=== PATIENT | female | born 1965 | race Caucasian/White ===

== ENCOUNTER 2016-11-30 18:00 | Emergency (ER) | payer SELFPAY ==
[2016-11-30 18:17] VITALS: RESP 18; TEMP 97.7
[2016-11-30] MEDS ORDERED: Sodium Chloride 0.9% 1,000 ML PRIMARY IV ONE ×2 (18:37→18:38)
[2016-11-30] MEDS ORDERED: NORMAL SALINE 10 ML SYRINGE FLUSH IVP PRN ×2 (18:37→18:38)
[2016-11-30] MEDS ORDERED: Metoclopramide Inj 10 MG/2 ML VIAL IVP ONE (18:38)
[2016-11-30] MEDS ORDERED: ONDANSETRON 4 MG/2 ML VIAL IVP ONE (18:38)
[2016-11-30] MEDS ORDERED: diphenhydrAMINE 50 MG/1 ML VIAL IVP ONE (18:38)
[2016-11-30] MEDS ORDERED: IPRATROPIUM/ALBUTEROL SULFATE 3 ML NEB NEB ONE (18:40)
[2016-11-30 19:25] LABS: BASOPHILS # (AUTO) 0.06 10*3/UL; BASOPHILS % (AUTO) 0.7 % (0-1); EOSINOPHILS % (AUTO) 2.1 % (0-8); HEMATOCRIT 42.7 % (37.0-47.0); IMM GRAN % (AUTO) 0.4 % (0-5); IMM GRAN# (AUTO) 0.03 10*3/UL; LYMPHOCYTES # (AUTO) 2.26 10*3/uL; LYMPHOCYTES % (AUTO) 28.1 % (10-50); MEAN CORPUSCULAR HEMOGLOBIN 31.9 PG (27-31); MEAN CORPUSCULAR HGB CONC 35.1 g/dL (33-37); MEAN PLATELET VOLUME 9.4 FL (7.4-12.2); MONOCYTES # (AUTO) 0.45 10*3/UL (0.3-0.8); MONOCYTES % (AUTO) 5.6 % (5-15); NEUTROPHILS # (AUTO) 5.06 10*3/UL; NEUTROPHILS % (AUTO) 63.1 % (50-80); RDW COEFFICIENT OF VARIATION 13.7 % (11.5-14.5); WHITE BLOOD COUNT 8.03 10^3/uL (4.8-10.8)
[2016-11-30 19:28] LABS: PLATELET MORPHOLOGY COMMENT NORMAL MORPHOLOGY (NORM)
[2016-11-30 19:37] LABS: ASPARTATE AMINO TRANSFERASE 32 IU/L (8-39); BILIRUBIN,TOTAL 0.5 mg/dL (0.3-1.2); BLOOD UREA NITROGEN 7 mg/dL (7-22); CALCIUM 9.3 mg/dL (8.7-10.7); CHLORIDE 105 meq/L (98-112); CREATININE 0.7 mg/dL (0.50-1.20); EST GLOMERULAR FILTRATION > 60 (>60 ml/min/1.73m(2)); GLUCOSE 82 mg/dL (78-110); POTASSIUM 3.9 meq/L (3.8-5.2); SODIUM 139 meq/L (135-145); TOTAL PROTEIN 6.9 g/dL (6.1-8.0)
[2016-11-30] MEDS ORDERED: KETOROLAC 30 MG/1 ML VIAL IVP ONE (19:39)
[2016-11-30] MEDS ORDERED: HYDROmorphone 2 MG/1 ML IVP ONE (19:55)
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
--- NOTE | 2016-12-01 15:09 | DI ---
PA /LATERAL CHEST X-RAY, 11/30/2016 6:37 PM : Clinical History: Cough. Previous Exam: 03/16/2013; 06/28/2015. There is no acute soft tissue or bony abnormality. Heart size is normal. Lungs are clear. Mediastinal structures are normal. There are no pulmonary nodules. Reading: Normal chest x-ray.
== END 2016-11-30 20:45 | disposition home or self-care (01) ==
LOC: ER 18:00
DX: G43.909 Migraine, unspecified, not intractable, without status migrainosus (principal); B34.8 Other viral infections of unspecified site; Z72.0 Tobacco use; R05 Cough; R06.2 Wheezing
CPT/HCPCS: 36415; 71020; 80053; 85025; 87804; 94640; 96361; 96374; 96375; 99283 ×2; J1200; J2765; J7620; J1170; J2405; J7030

== ENCOUNTER → 2017-01-01 | Outpatient (CLI) | payer SELFPAY ==
[2017-01-01 11:12] LABS: FREE T4 (FREE THYROXINE) 0.83 ng/dL (0.93-1.71)
== END ==
LOC: MOB LAB 09:12
PROVIDERS: ATTEND Internal Medicine
DX: R94.6 Abnormal results of thyroid function studies (principal)
CPT/HCPCS: 36415; 84439; 84443; 84481

== ENCOUNTER 2017-01-20 16:10 | Emergency (ER) | payer SELFPAY ==
[2017-01-20 16:54] VITALS: RESP 17; TEMP 98.2
[2017-01-20] MEDS ORDERED: Lidocaine 1% 10 MG/ML - 20 ML VIAL SUBCUT ONE (17:00)
--- NOTE | 2017-01-20 17:15 | DI ---
RIGHT THUMB EXAM, 01/20/2017 4:21 PM: Clinical History: Pain at the base of the right. Previous Exam: None at this facility. 3 views are submitted. There is no acute soft tissue, osseous, or joint abnormality. Reading: Normal right thumb exam.
--- NOTE | 2017-01-20 22:08 | PDOC ---
Upper Extremity Problem HPI - General Chief Complaint: Upper Extremity Problem/Injury Stated Complaint: pain and a nodule right thumb Date Seen by Provider: 01/20/17 Time Seen by Provider: 16:20 Source: POSITIVE: Patient Exam Limitations: POSITIVE: No limitations Nurse's Notes Reviewed & Considered: Yes - History of Present Illness Initial Comments: The patient is a 51-year-old female with a 2 month history of discomfort and "a lump"palmar aspect right thumb over the first carpal phalangeal joint. The "lump"is somewhat uncomfortable on direct palpation. No redness, swelling or warmth. No sensory, motor or vascular deficits. No popping or clicking with flexion and extension of the thumb. Body Location Affected: REPORTS: Upper Extremity (R) (Right thumb) Timing: REPORTS: Constant Duration: >1 week (2 months) Severity: Moderate Quality: REPORTS: "Pain" (Discomfort on palpation), Tenderness Recent Injury: REPORTS: No Context of Injury: DENIES: Fall, Twist, Direct Blow, Incision, Burn, Crush, Stab , Prolonged Pressure on Ext, Other Modifying Factors: REPORTS: Other (Direct palpation) Associated Symptoms: DENIES: Fever, Chills, Diaphoresis, Shortness of Breath, Difficulty Breathing, Chest Pain, Chest Discomfort, Nausea, Vomiting, Neck Pain , Jaw Pain, Back Pain, See Diagram, Other Recent Care Received: Denies - Patient Home Medications Home Medications: Home Medications Citalopram Hydrobromide [Citalopram Hbr] 1 tab-cap PO QAM #30 tab 11/21/16 Clonazepam 1 tab-cap PO BID #60 tab 11/21/16 Dexlansoprazole [Dexilant] Sample #4 01/16/17 HYDROcodone/APAP 10/325 Tab [[place] 10/325 Tab] 1 tab PO Q6H PRN #20 tab - Patient Allergies Allergies/Adverse Reactions: Allergies Allergy/AdvReac Type Severity Reaction Status Date / Time sulfamethoxazole Allergy Intermediate HIVES Verified 01/20/17 16:41 [From Bactrim] trimethoprim [From Bactrim] Allergy Unknown HIVES Verified 01/20/17 16:41 ketorolac tromethamine AdvReac Severe .feels Verified 01/20/17 16:41 [From Toradol] funky Sulfa (Sulfonamide AdvReac Severe NAUSEA Verified 01/20/17 16:41 Antibiotics) tramadol AdvReac Severe NAUSEA Verified 01/20/17 16:41 terfenadine [From Seldane] AdvReac Intermediate itching Verified 01/20/17 16:41 gabapentin AdvReac HALLUCINATI Verified 01/20/17 16:41 ONS PAIN MEDICINE ABUSE ALERT AdvReac NOT Uncoded 01/20/17 16:41 APPLICABLE Past Medical History - heen HEENT History: Other (please comment) Additional HEENT History: RETAINER Cardiovascular History: Denies History Respiratory History: Other (please comment) Additional Respiratory History: BRONCHITIS 2011 CHRONIC TOBACCO ABUSE. smokes 1 /2 TO 1 PACK PER DAY Gastrointestinal History: Denies History Genitourinary History: Other (please comment) Additional Genitourinary History: URETHRAL/ BLADDER MESH Endocrine History: Denies History Musculoskeletal History: Osteoporosis, Joint Pain, Other (please comment) Prosthesis or Implant: Yes (RT TOE HARDWARE) Additional Musculoskeletal History: L SPINE BULGING DISC. LT KNEE TORN MENISCUS Neurological History: Denies History Blood Disorders: Denies History Psychiatric History: Depression, Anxiety Disorders, Substance Abuse Additional Psychiatric History: BENZO ABUSE History of Sexually Transmitted Diseases: No Female Reproductive History: Hysterectomy Obstetrical History: Delivery Cancer History: Denies History In Past Year Been Physically Harmed or Verbally Threatened: No (PER PATIENT) History of MDRO: No History of Other Communicable Diseases: No Tobacco Use: Current Every Day Smoker Alcohol Use: None Substance Use Type: None Previous Surgical History: Yes Type / Date of Surgery: RIGHT FOOT BUNIONECTOMY/ LEFT FOOT TENDON RELEASE / C SECTION x1/ RIGHT CTR/ HYST/ LEFT KNEE SCOPE x2/ BLADDER SLING 07/2012/ TVT REVISION/BILAT TOE SURGERIES WITH HARDWARE PLACEMENT, HYSTERECTOMY Anesthesia Reactions: Yes (PONV) Malignant Hyperthermia: No Family History of Malignant Hyperthermia: No Significant Family History: Cancer, Diabetes, Hypertension Additional Family History: MOTHER-HTN/ HEART/ [place] Past Medical History Reviewed: Reviewed - No Changes ROS - Limitations ROS Limitations: No Limitations Constitution: REPORTS: Denies Symptoms Cardiovascular: REPORTS: Denies Cardiac Symptoms Respiratory: REPORTS: Denies Resp Symptoms Neurological: REPORTS: Denies Neuro Symptoms Gastrointestinal: REPORTS: Denies GI Symptoms Endocrine: REPORTS: Denies Symptoms Musculoskeletal: REPORTS: Joint Pain (Right thumb, carpal phalangeal joint, volar aspect over small nodule) Genitourinary: REPORTS: Denies Symptoms Eyes: REPORTS: Denies Symptoms ENT: REPORTS: Denies Symptoms Skin: REPORTS: Denies Skin Symptoms Lympathic: REPORTS: Denies Lympathic Symptoms Immunologic: POSITIVE: Denies Symptoms Psychiatric: POSITIVE: Denies Psych Symptoms Upper Extremity Problem Exam - General Appearance General Appearance: POSITIVE: Alert, Cooperative, No Acute Distress, No Evidence of Trauma - Upper Extremity Upper Extremity: POSITIVE: No Edema, Normal ROM, Joints Normal, Tenderness ( Tender nodule over the flexor tendon at first metacarpal phalangeal joint, volar aspect), See Diagram. NEGATIVE: Non-Tender, Swelling, Limited Active ROM , Limited Passive ROM, Limited Functional ROM, Limited ROM d/t Pain, Axillary Lymphadenopathy, Positive Cody Test, Joint Swelling, Joint Effusion Vascular: POSITIVE: No Vascular Compromise, Full Pulses, Equal Pulses - Skin Skin: POSITIVE: Normal Color, Warm, Dry, No Rash - Neuro / Psych Peripheral Neuro Exam: POSITIVE: Sensation Normal, Motor Normal Central Neuro Exam: POSITIVE: Oriented to Person, Oriented to Place, Oriented to Time, CN's Normal as Tested, Normal Speech, Normal Cognition, Appropriate Mood, Appropriate Affect - Respiratory / CVS Respiratory / CVS: POSITIVE: No Respiratory Distress, Breath Sounds Normal, Regular Rate & Rhythm, Heart Sounds Normal Peripheral Pulses: Radial (R): 2+, Radial (L): 2+ Procedure - Additional Procedures Additional Procedures: Other (After local anesthesia with 1% lidocaine attempt was made to aspirate nodule, which is believe to be a ganglion cyst. No cystic material recovered.) Images - Hands Hand: 1 - Nodule Upper Ext Problem Progress - Results Reviewed by me Xrays/CTs/US Reviewed by me: Yes Discussed with Radiologist: No Radiology Findings: X-ray right hand is normal - Patient's Progress Pain Medication Addressed: POSITIVE: Yes (Hydrocodone/APAP) School/Work Release Addressed: POSITIVE: Not Applicable Re-Examine Time:: 17:20 Status: POSITIVE: Unchanged, Re-Examined - Consult Counseled: POSITIVE: Patient, RE: Radiology Results, RE: DX, RE: Need for F/U Patient Care Time - Estimated PCT Patient Care Time (In Minutes): 30 Vital Signs - Recent Vital Signs Vital Signs: Vital Signs (Last 8 hours) Temp Pulse Resp BP Pulse Ox 01/20/17 16:10 98.2 F 87 17 98/75 95 - VS Reviewed Vital Signs Reviewed: Yes Discharge Clinical Impression: Ganglion cyst of finger of right hand Discharge Disposition: Discharged to Home Condition: Stable Prescriptions / Orders: HYDROcodone/APAP 10/325 Tab [[place] 10/325 Tab] 1 tab PO Q6H PRN #20 tab PRN Reason: Pain Patient Instructions Given at Discharge: Ganglion Cysts (ED) Additional Instructions: I believe you have a small cyst on the flexor tendon of your right thumb. This is known as a ganglion cyst. I tried to rupture and aspirate the cyst under local anesthesia, but I'm not sure I was very successful. Continue present medications. Follow-up with Dr. Escudero, as is already arranged. Return here as necessary. Follow Up With: WILIAM SILVA [Primary Care Provider] - (Instructions as above. Follow-up with Dr. Escudero. Return here as necessary.)
== END 2017-01-20 17:39 | disposition home or self-care (01) ==
LOC: ER 16:10
DX: M67.441 Ganglion, right hand (principal)
CPT/HCPCS: 73140; 99283; J2001

== ENCOUNTER 2017-06-28 19:59 | Emergency (ER) | payer SELFPAY ==
--- NOTE | 2017-06-28 21:03 | DI ---
RIGHT FOOT, 06/28/2017 7:19 PM: Clinical History: Right foot injury. Previous Exam: 03/22/2013. 3 views are submitted. There is soft tissue swelling over the dorsal surface of the distal aspect of the metatarsal bones. No acute fracture or dislocation is present and there is no radius or body. The patient is status post osteotomies of the first metatarsal bone and in the sacrum. Fourth toes in th e PIP joints and the DIP joints of the third and fourth toes. Reading: There is no acute fracture or dislocation.
[2017-06-28] MEDS: Meperidine Inj 50 MG/ML CARPUJECT IM ONE (21:12)
[2017-06-29 00:50] VITALS: RESP 18; TEMP 98.2
--- NOTE | 2017-06-29 02:51 | PDOC ---
Foot / Ankle Injury - General Chief Complaint: Lower Extremity Problem/Injury Stated Complaint: DROPPED PROPANE BOTTLE ON RIGHT FOOT Date Seen by Provider: 06/28/17 Time Seen by Provider: 20:15 Source: POSITIVE: Patient Exam Limitations: POSITIVE: No limitations Nurse's Notes Reviewed & Considered: Yes - History of Present Illness Initial Comments: The patient is a 52-year-old female. 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 Patient states she is having pain over this area and over the second third fourth and fifth toes. She states she is not able to walk due to pain. 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) Severity: Moderate Quality: REPORTS: "Pain" Context: REPORTS: Direct Blow Modifying Factors: REPORTS: Other (exacerbated by attempting to walk and direct palpation) Associated Symptoms: DENIES: Tingling Distally, Numbness Distally, Swelling, Snapping Sensation, Popping Sensation, Other Any Prior Injuries Related to Current Complaint?: No - Patient Allergies Allergies/Adverse Reactions: Allergies Allergy/AdvReac Type Severity Reaction Status Date / Time sulfamethoxazole Allergy Intermediate HIVES Unverified 05/13/17 08:43 [From Bactrim] trimethoprim [From Bactrim] Allergy Unknown HIVES Unverified 05/13/17 08:43 ketorolac tromethamine AdvReac Severe .feels Unverified 05/13/17 08:43 [From Toradol] funky Sulfa (Sulfonamide AdvReac Severe NAUSEA Unverified 05/13/17 08:43 Antibiotics) tramadol AdvReac Severe NAUSEA Unverified 05/13/17 08:43 terfenadine [From S[place]ane] AdvReac Intermediate itching Unverified 05/13/17 08: 43 gabapentin AdvReac HALLUCINATI Unverified 05/13/17 08:43 ONS PAIN MEDICINE ABUSE ALERT AdvReac NOT Uncoded 05/13/17 08:43 APPLICABLE PAIN CONTRACT AdvReac Uncoded 05/13/17 08:43 - Patient Home Medications Home Medications: Home Medications Dexlansoprazole [Dexilant] Sample #4 01/16/17 Citalopram Hydrobromide [Citalopram Hbr] 1 tab-cap PO QAM #30 tab 05/13/17 Hydrocodone/Acetaminophen [Hydrocodon-Acetaminophen 5-325] 1 tab-cap PO QHS #60 tab-cap 05/13/17 Clonazepam 1 tab PO BID #60 tab 06/13/17 Hydrocodone Bit/Acetaminophen [[place] 10-325 Tablet] 1 tab PO Q4H PRN #20 tab Past Medical History - heen HEENT History: Denies History Additional HEENT History: RETAINER Cardiovascular History: Denies History Respiratory History: Denies History Additional Respiratory History: BRONCHITIS 2012 CHRONIC TOBACCO ABUSE. smokes 1 /2 TO 1 PACK PER DAY Gastrointestinal History: Denies History Genitourinary History: Other (please comment) Additional Genitourinary History: URETHRAL/ BLADDER MESH Endocrine History: Denies History Musculoskeletal History: Osteoporosis, Joint Pain, Other (please comment) Prosthesis or Implant: Yes (RT TOE HARDWARE) Additional Musculoskeletal History: L SPINE BULGING DISC. LT KNEE TORN MENISCUS Neurological History: Denies History Blood Disorders: Denies History Psychiatric History: Depression, Anxiety Disorders, Substance Abuse Additional Psychiatric History: BENZO ABUSE History of Sexually Transmitted Diseases: No Female Reproductive History: Denies History Obstetrical History: Denies History Cancer History: Denies History In Past Year Been Physically Harmed or Verbally Threatened: No History of MDRO: No History of Other Communicable Diseases: No Tobacco Use: Current Every Day Smoker Alcohol Use: None Substance Use Type: None Previous Surgical History: Yes Type / Date of Surgery: RIGHT FOOT BUNIONECTOMY/ LEFT FOOT TENDON RELEASE / C SECTION x1/ RIGHT CTR/ HYST/ LEFT KNEE SCOPE x2/ BLADDER SLING 07/2012/ TVT REVISION/BILAT TOE SURGERIES WITH HARDWARE PLACEMENT, HYSTERECTOMY Anesthesia Reactions: Yes (PONV) Malignant Hyperthermia: No Significant Family History: Cancer, Diabetes, Hypertension Additional Family History: MOTHER-HTN/ HEART/ [place] Past Medical History Reviewed: Reviewed - No Changes ROS - Limitations ROS Limitations: No Limitations Constitution: REPORTS: Denies Symptoms Cardiovascular: REPORTS: Denies Cardiac Symptoms Respiratory: REPORTS: Denies Resp Symptoms Neurological: REPORTS: Denies Neuro Symptoms Gastrointestinal: REPORTS: Denies GI Symptoms Endocrine: REPORTS: Denies Symptoms Musculoskeletal: REPORTS: Recent Injury (Pain to the dorsum and distal aspect of the right foot and over the second third and fourth toes) Genitourinary: REPORTS: Denies Symptoms Eyes: REPORTS: Denies Symptoms ENT: REPORTS: Denies Symptoms Skin: REPORTS: Other (Contusion dorsum of the distal half of the right foot) Lympathic: REPORTS: Denies Lympathic Symptoms Immunologic: POSITIVE: Denies Symptoms Psychiatric: POSITIVE: Denies Psych Symptoms Foot / Ankle Exam - General Appearance General Appearance: POSITIVE: Alert, Cooperative, No Acute Distress. NEGATIVE: No Evidence of Trauma - Extremities Foot: POSITIVE: Soft Tissue Tenderness, Bony Tenderness, Swelling, Ecchymosis ( see diagram), Limited ROM d/t Pain. NEGATIVE: [place]. ROM d/t Decr. Funct., Deformity, Nail Injury, Complete Avulsion, Partial Avulsion, Subungual Hematoma Ankle: POSITIVE: Normal Inspection, Non-Tender, Normal ROM, Stable Gait: POSITIVE: Unable to Bear Weight Neuro: POSITIVE: Sensation Normal, Motor Normal Vascular: POSITIVE: No Vascular Compromise, Full Pulses, Equal Pulses Tendons: POSITIVE: Tendon Function Normal Skin: POSITIVE: See Diagram (contusion and swelling over the distal half of the dorsum of the right foot with pain on palpation here and to the second third and fourth toes; no deformities) - Respiratory / CVS Respiratory / CVS: POSITIVE: Chest Non-Tender, No Respiratory Distress, Heart Sounds Normal, Regular Rate/Rhythm, Breath Sounds Normal Peripheral Pulses: Radial (R): 2+, Radial (L): 2+, Dorsalis-pedis (R): 2+, Dorsalis-pedis (L): 2+ Images - Lower Extremities Feet: 1 - Swelling and some bruising 2 - Pain on palpation without obvious deformity Procedures - Splinting Time Splint Applied: 20:40 Location: fourth toe sharlene taped to the third and fifth toes Splint Type: Sharlene Taped, Crutches Applied By:: Nurse Foot / Ankle Progress - Results Reviewed by me Pain Medication Addressed: POSITIVE: Yes (patient given Demerol, 75 mg IM in the emergency room. Patient has hydrocodone/APAP at home) School/Work Release Addressed: POSITIVE: Yes (weightbearing when tolerated) Xrays/CTs/US Reviewed by me: Yes Discussed with Radiologist: No Radiology Results: POSITIVE: Right, Foot Radiology Findings: X-ray right foot shows a fracture mid shaft proximal phalange of fourth toe. Incidentally noted or 2 screws in the first metatarsal from previous bunionectomy - Patient's Progress Re-Examine Time:: 20:45 Status: POSITIVE: Unchanged - Consult Counseled: POSITIVE: Patient, RE: Radiology Results, RE: DX, RE: Need for F/U Patient Care Time - Estimated PCT Patient Care Time (In Minutes): 25 Vital Signs - Recent Vital Signs Vital Signs: Vital Signs (Last 8 hours) Temp Pulse Resp BP Pulse Ox 06/28/17 19:59 98.2 F 98 18 129/85 97 - VS Reviewed Vital Signs Reviewed: Yes Discharge Clinical Impression: Fracture of toe of right foot, Contusion of foot including toes Discharge Disposition: Discharged to Home Condition: Stable Prescriptions / Orders: Hydrocodone Bit/Acetaminophen [[place] 10-325 Tablet] 1 tab PO Q4H PRN #20 tab PRN Reason: Pain Patient Instructions Given at Discharge: Toe Fracture (ED), Contusion in Adults (ED) Additional Instructions: Keep your fourth toe taped between your third and fifth toes. Use crutches and bear no weight on your right foot until you can do so without pain. Advil or Tylenol for [id number] pain. [place], one every 4 hours as necessary for more severe pain. Elevate your leg. Cool compresses. Return anytime if condition worsens in any way. Follow-up with your line cook. Follow Up With: WILIAM SILVA [Primary Care Provider] - (Instructions as above. Return here as necessary. Follow-up with your line cook.)
== END 2017-06-28 21:40 | disposition home or self-care (01) ==
LOC: ER 19:59
DX: S92.511A Displaced fracture of proximal phalanx of right lesser toe(s), initial encounter for closed fracture (principal); W20.8XXA Other cause of strike by thrown, projected or falling object, initial encounter
CPT/HCPCS: 73630; 96372; 99283 ×2; J2175

== ENCOUNTER 2019-09-15 19:42 | Observation (INO) ==
[~2019-09-15 19:42] MED LIST: Sodium Chloride 0.9% 1,000 ML PRIMARY IV ONE
[2019-09-15] MEDS ORDERED: Sodium Chloride 0.9% 1,000 ML PRIMARY IV ONE ×2 (19:45→23:03)
[2019-09-15 19:57] LABS: BASOPHILS # (AUTO) 0.02 10*3/UL; BASOPHILS % (AUTO) 0.2 % (0-1); EOSINOPHILS # (AUTO) 0.09 10*3/UL; EOSINOPHILS % (AUTO) 0.7 % (0-8); Hematocrit [HCT] 48.9 % (37.0-47.0); Hemoglobin [HGB] 16.1 g/dL (12.0-16.0); LYMPHOCYTES # (AUTO) 4.98 10*3/uL; MEAN CORPUSCULAR HGB CONC 32.9 g/dL (33-37); MEAN CORPUSCULAR VOLUME 92.1 FL (81-99); MEAN PLATELET VOLUME 9.2 FL (7.4-12.2); MONOCYTES # (AUTO) 0.63 10*3/UL (0.3-0.8); MONOCYTES % (AUTO) 4.8 % (5-15); NEUTROPHILS # (AUTO) 7.14 10*3/UL; NEUTROPHILS % (AUTO) 54.3 % (50-80); RED BLOOD COUNT 5.31 10^6/uL (4.20-5.40)
[2019-09-15 19:59] LABS: PLATELET MORPHOLOGY COMMENT NORMAL MORPHOLOGY (NORM); RBC MORPHOLOGY COMMENT NORMAL MORPHOLOGY (NORM); WBC MORPHOLOGY COMMENT NORMAL MORPHOLOGY (NORM)
[2019-09-15] MEDS ORDERED: IPRATROPIUM/ALBUTEROL SULFATE 3 ML NEB NEB SCH (20:00)
[2019-09-15 20:11] LABS: BLOOD UREA NITROGEN 7 mg/dL (7-22); BUN/CREATININE RATIO 8.75 (6-20); SERUM ALBUMIN 4.3 g/dL (3.5-4.8)
[2019-09-15 20:32] LABS: VENOUS PCO2 45.6 mmHg (45-55); VENOUS PH 7.39 (7.32-7.42)
[2019-09-15] MEDS ORDERED: metroNIDAZOLE 500mg (Premix) 500 MG/100 ML BAG IV ONE (21:40)
[2019-09-15] MEDS ORDERED: cefTRIAXone Inj 2 GM in Sodium Chloride 0.9% 100 ML IV ONE (21:40)
[2019-09-15] MEDS ORDERED: metroNIDAZOLE 500mg (Premix) 500 MG/100 ML BAG IV SCH (22:00)
[2019-09-15] MEDS ORDERED: IPRATROPIUM/ALBUTEROL SULFATE 3 ML NEB NEB PRN (22:48)
[2019-09-15] MEDS ORDERED: ClonazePAM Tab 1 MG TABLET PO PRN (22:48)
[2019-09-15] MEDS ORDERED: ALBUTEROL SULFATE 2.5 MG/3 ML NEB PRN (22:48)
[2019-09-15] MEDS ORDERED: LIDOCAINE W/ SODIUM BICARB 0.5 ML SYR SUBD PRN (22:48)
[2019-09-15] MEDS ORDERED: Acetaminophen 1000mg Inj 1,000 MG/100 ML VIAL IV PRN (23:04)
[2019-09-15] MEDS ORDERED: AMITRIPTYLINE 25 MG TABLET PO SCH (23:15)
[2019-09-16] MEDS: methylPREDNISolone 125 MG/2 ML VIAL IVP SCH ×2 (00:36→05:30)
[2019-09-16 03:51] VITALS: RESP 20
[2019-09-16 05:22] LABS: BASOPHILS # (AUTO) 0.03 10*3/UL; BASOPHILS % (AUTO) 0.2 % (0-1); EOSINOPHILS # (AUTO) 0.12 10*3/UL; EOSINOPHILS % (AUTO) 0.9 % (0-8); Hematocrit [HCT] 42.2 % (37.0-47.0); Hemoglobin [HGB] 13.9 g/dL (12.0-16.0); LYMPHOCYTES # (AUTO) 1.69 10*3/uL; MEAN CORPUSCULAR HGB CONC 32.9 g/dL (33-37); MEAN CORPUSCULAR VOLUME 94.4 FL (81-99); MEAN PLATELET VOLUME 9.3 FL (7.4-12.2); MONOCYTES # (AUTO) 0.36 10*3/UL (0.3-0.8); MONOCYTES % (AUTO) 2.7 % (5-15); NEUTROPHILS # (AUTO) 10.84 10*3/UL; RED BLOOD COUNT 4.47 10^6/uL (4.20-5.40)
[2019-09-16 05:28] LABS: PLATELET MORPHOLOGY COMMENT NORMAL MORPHOLOGY (NORM); RBC MORPHOLOGY COMMENT NORMAL MORPHOLOGY (NORM); WBC MORPHOLOGY COMMENT NORMAL MORPHOLOGY (NORM)
[2019-09-16 05:35] LABS: BLOOD UREA NITROGEN 9 mg/dL (7-22); BUN/CREATININE RATIO 12.85 (6-20)
[2019-09-16 06:50] VITALS: BP 124/72; TEMP 97.6
[2019-09-16] MEDS: HYDROcodone-APAP 10 MG-325 MG TABLET PO SCH ×3 (08:43→09:56)
[2019-09-16] MEDS ORDERED: ESCITALOPRAM 10 MG TABLET PO SCH (09:00)
[2019-09-16 11:40] VITALS: O2SAT 94
[2019-09-16] MEDS ORDERED: Rivaroxaban Tab 10 MG TAB PO SCH (17:00)
[2019-09-16] MEDS ORDERED: cefTRIAXone Inj 2 GM in Sodium Chloride 0.9% 100 ML IV SCH (22:00)
== END 2019-09-16 12:01 | disposition home or self-care (01) ==
LOC: ER 19:42 → MED/SURG 19:42
PROVIDERS: ADMIT Internal Medicine; ATTEND Internal Medicine

== ENCOUNTER 2019-09-16 21:43 | Inpatient (IN) ==
[2019-09-16] MEDS ORDERED: ASPIRIN 81 MG (BABY) CHEWABLE TABLET PO ONE (22:12)
[2019-09-16] MEDS ORDERED: Sodium Chloride 0.9% 1,000 ML PRIMARY IV ONE (22:12)
[2019-09-16] MEDS ORDERED: IPRATROPIUM/ALBUTEROL SULFATE 3 ML NEB NEB ONE (22:18)
[2019-09-16] MEDS ORDERED: HYDROmorphone 2 MG/1 ML IVP ONE (22:19)
[2019-09-16 22:51] LABS: BASOPHILS # (AUTO) 0.01 10*3/UL; BASOPHILS % (AUTO) 0.1 % (0-1); EOSINOPHILS # (AUTO) 0 10*3/UL; EOSINOPHILS % (AUTO) 0 % (0-8); Hemoglobin [HGB] 14.4 g/dL (12.0-16.0); LYMPHOCYTES # (AUTO) 1.52 10*3/uL; MEAN CORPUSCULAR HGB CONC 33.5 g/dL (33-37); MEAN CORPUSCULAR VOLUME 91.5 FL (81-99); MONOCYTES # (AUTO) 0.53 10*3/UL (0.3-0.8); MONOCYTES % (AUTO) 3.8 % (5-15); NEUTROPHILS # (AUTO) 11.75 10*3/UL; NEUTROPHILS % (AUTO) 83.2 % (50-80)
[2019-09-16 23:03] LABS: PLATELET MORPHOLOGY COMMENT NORMAL MORPHOLOGY (NORM); RBC MORPHOLOGY COMMENT NORMAL MORPHOLOGY (NORM); WBC MORPHOLOGY COMMENT NORMAL MORPHOLOGY (NORM)
[2019-09-16 23:05] LABS: BLOOD UREA NITROGEN 8 mg/dL (7-22); BUN/CREATININE RATIO 13.33 (6-20); SERUM ALBUMIN 3.7 g/dL (3.5-4.8)
[2019-09-16 23:31] LABS: VENOUS PCO2 36.5 mmHg (45-55); VENOUS PH 7.44 (7.32-7.42)
[2019-09-17] MEDS ORDERED: HEPARIN 5000 UNIT/1 ML SUBCUT SCH (00:46)
[2019-09-17] MEDS ORDERED: LIDOCAINE W/ SODIUM BICARB 0.5 ML SYR SUBD PRN (00:46)
[2019-09-17] MEDS: Ertapenem Inj 1 GM in Sodium Chloride 0.9% 100 ML IV SCH (01:22)
[2019-09-17] MEDS: GABAPENTIN 300 MG CAPSULE PO SCH ×4 (01:23→21:31)
[2019-09-17] MEDS: HYDROcodone-APAP 10 MG-325 MG TABLET PO SCH ×2 (01:23→08:17)
[2019-09-17] MEDS: ClonazePAM Tab 1 MG TABLET PO PRN ×3 (01:27→19:10)
[2019-09-17] MEDS: ESCITALOPRAM 10 MG TABLET PO SCH (08:16)
[2019-09-17] MEDS: ASCORBIC ACID Chewable 500 MG TABLET PO SCH (08:17)
[2019-09-17] MEDS: NICOTINE 21 MG /DAY PATCH TRANSDERM SCH (08:18)
[2019-09-17] MEDS: Rivaroxaban Tab 10 MG TAB PO SCH (16:36)
[2019-09-17] MEDS ORDERED: ALBUTEROL SULFATE 2.5 MG/3 ML NEB PRN (17:22)
[2019-09-17] MEDS ORDERED: POTASSIUM CHLORIDE 20 MEQ TAB PO ONE (17:23)
[2019-09-17] MEDS: methylPREDNISolone 40 MG/1 ML VIAL IVP SCH ×2 (17:29→22:57)
[2019-09-17] MEDS: IPRATROPIUM/ALBUTEROL SULFATE 3 ML NEB NEB SCH (17:35)
[2019-09-17] MEDS ORDERED: AZITHROMYCIN 250 MG TABLET PO SCH (17:45)
[2019-09-17] MEDS: HYDROcodone-APAP 10 MG-325 MG TABLET PO PRN (19:09)
[2019-09-17] MEDS: AMITRIPTYLINE 25 MG TABLET PO SCH (21:31)
[2019-09-18] MEDS: IPRATROPIUM/ALBUTEROL SULFATE 3 ML NEB NEB SCH ×5 (01:29→19:20)
[2019-09-18] MEDS: Ertapenem Inj 1 GM in Sodium Chloride 0.9% 100 ML IV SCH (01:32)
[2019-09-18] MEDS: HYDROcodone-APAP 10 MG-325 MG TABLET PO PRN ×3 (01:32→18:54)
[2019-09-18] MEDS: methylPREDNISolone 40 MG/1 ML VIAL IVP SCH ×4 (04:59→23:19)
[2019-09-18 05:17] LABS: BASOPHILS # (AUTO) 0 10*3/UL; BASOPHILS % (AUTO) 0 % (0-1); EOSINOPHILS # (AUTO) 0 10*3/UL; EOSINOPHILS % (AUTO) 0 % (0-8); Hematocrit [HCT] 44.6 % (37.0-47.0); Hemoglobin [HGB] 14.8 g/dL (12.0-16.0); MEAN CORPUSCULAR HGB CONC 33.2 g/dL (33-37); MEAN CORPUSCULAR VOLUME 92.5 FL (81-99); MONOCYTES # (AUTO) 0.16 10*3/UL (0.3-0.8); MONOCYTES % (AUTO) 1.6 % (5-15); NEUTROPHILS # (AUTO) 8.64 10*3/UL; NEUTROPHILS % (AUTO) 87.2 % (50-80); RED BLOOD COUNT 4.82 10^6/uL (4.20-5.40)
[2019-09-18 05:25] LABS: BLOOD UREA NITROGEN 15 mg/dL (7-22)
[2019-09-18 05:38] LABS: PLATELET MORPHOLOGY COMMENT NORMAL MORPHOLOGY (NORM); RBC MORPHOLOGY COMMENT NORMAL MORPHOLOGY (NORM); WBC MORPHOLOGY COMMENT NORMAL MORPHOLOGY (NORM)
[2019-09-18] MEDS: ESCITALOPRAM 10 MG TABLET PO SCH (08:00)
[2019-09-18] MEDS: ASCORBIC ACID Chewable 500 MG TABLET PO SCH (08:00)
[2019-09-18] MEDS: NICOTINE 21 MG /DAY PATCH TRANSDERM SCH (08:00)
[2019-09-18] MEDS: GABAPENTIN 300 MG CAPSULE PO SCH ×3 (08:00→21:48)
[2019-09-18] MEDS: ClonazePAM Tab 1 MG TABLET PO PRN ×3 (08:51→18:54)
[2019-09-18] MEDS: Insulin Lispro Flexpen 300 UNIT/3 ML INSULN.PEN SUBCUT SCH ×3 (10:13→20:20)
[2019-09-18] MEDS: Rivaroxaban Tab 10 MG TAB PO SCH (16:51)
[2019-09-18] MEDS: AMITRIPTYLINE 25 MG TABLET PO SCH (21:48)
[2019-09-19] MEDS: IPRATROPIUM/ALBUTEROL SULFATE 3 ML NEB NEB SCH ×2 (01:05→06:17)
[2019-09-19] MEDS: Ertapenem Inj 1 GM in Sodium Chloride 0.9% 100 ML IV SCH (01:24)
[2019-09-19] MEDS: HYDROcodone-APAP 10 MG-325 MG TABLET PO PRN ×2 (01:24→08:11)
[2019-09-19] MEDS: methylPREDNISolone 40 MG/1 ML VIAL IVP SCH (05:27)
[2019-09-19 06:51] VITALS: BP 151/82; RESP 18; TEMP 97.3
[2019-09-19] MEDS: Insulin Lispro Flexpen 300 UNIT/3 ML INSULN.PEN SUBCUT SCH (08:08)
[2019-09-19] MEDS: ASCORBIC ACID Chewable 500 MG TABLET PO SCH (09:02)
[2019-09-19] MEDS: NICOTINE 21 MG /DAY PATCH TRANSDERM SCH (09:02)
[2019-09-19] MEDS: GABAPENTIN 300 MG CAPSULE PO SCH (09:03)
[2019-09-19] MEDS: ESCITALOPRAM 10 MG TABLET PO SCH (09:03)
[2019-09-19] MEDS: ClonazePAM Tab 1 MG TABLET PO PRN (09:08)
[2019-09-19 09:26] VITALS: O2SAT 94
== END 2019-09-19 11:50 | disposition home or self-care (01) | DRG 194 ==
LOC: ER 21:43 → MED/SURG 09-17 00:22
PROVIDERS: ADMIT Internal Medicine; ATTEND Internal Medicine